=== PATIENT | female | born 1975 | race Caucasian/White ===

== ENCOUNTER 2020-08-19 07:23 | Outpatient (REF) | payer BC, SELFPAY ==
[2020-08-19 11:13] LABS: Hematocrit 41.4 % (37-47); Hemoglobin 13.3 g/dl (12.0-16.0); Mean Corpuscular HGB Conc 32.1 g/dl (31.0-35.0); Mean Corpuscular Volume 96.5 fL (80-98); Mean Platelet Volume 9.6 fL (9.4-12.3); Platelet Count 292 X10*3/uL (160-400); Red Blood Count 4.29 X10*6/uL (4.20-5.50); Red Cell Distribution Width 12.2 % (11.0-16.0); White Blood Count 5.6 X10*3/uL (4.8-10.8)
[2020-08-19 11:25] LABS: Glucose Urine UA NEG (NEG); Leukocyte Esterase Urine NEG (NEG); Nitrite Urine NEG (NEG); PH 5.5 (5.0-8.0); Specific Gravity - Urine >= 1.030 (1.005-1.025); Urine Blood 3+ (NEG); Urine Ketones NEG (NEG); Urine Protein NEG (NEG-TRACE)
[2020-08-19 11:27] LABS: Appearance Urine TURBID; Color Urine YELLOW
[2020-08-19 11:41] LABS: Alanine Aminotransferase 10 U/L (0-31); Albumin Level 4.4 g/dL (3.5-5.0); Alkaline Phosphatase 44 U/L (39-117); Anion Gap 15 (12-20); Aspartate Amino Transferase 17 U/L (5-31); Bilirubin Total 0.5 mg/dL (0.0-1.0); Blood Urea Nitrogen 12 mg/dL (9-16); Calcium 8.8 mg/dL (8.4-10.2); Carbon Dioxide 26 mmol/L (22-29); Chloride 104 mmol/L (96-108); Cholesterol 173 mg/dL; Estimated Glomerular Filt Rate > 60; Glucose Fasting 84 mg/dL (60-99); HDL Cholesterol 62 mg/dL; LDL Cholesterol Calculated 101 mg/dl; Sodium 141 mmol/L (135-145); Total Protein 6.8 g/dL (6.5-8.0); Triglycerides 54 mg/dL
[2020-08-19 11:50] LABS: Amorphous Sediment Urine 3+ /LPF; Bacteria Urine 1+ /LPF; Squamous Epithelial Cell Urine 3+ /LPF; WBC Urine 0-2 /HPF (0-4)
[2020-08-19 12:01] LABS: Thyroid Stimulating Hormone 1.93 uIU/mL (0.32-4.0)
== END 2020-08-19 07:24 | disposition home or self-care (01) ==
LOC: HO.HMGCLDS 07:23
PROVIDERS: PCP Internal Medicine; Visit Provider Internal Medicine
DX: Z00.00 Encounter for general adult medical examination without abnormal findings (principal)
CPT/HCPCS: 36415; 80053; 80061; 81001; 84443; 85027

== ENCOUNTER → 2020-11-22 08:05 | Outpatient (BNVA) | payer BC, SELFPAY | PROVIDERS: PCP Internal Medicine; Visit Provider Nurse Practitioner Family ==

== ENCOUNTER → 2020-12-14 14:41 | Outpatient (BNVA) | payer BC, SELFPAY | PROVIDERS: PCP Internal Medicine; Visit Provider Anesthesiology ==

== ENCOUNTER 2021-11-04 08:44 | Outpatient (REF) | payer BC, SELFPAY ==
[2021-11-04 11:21] LABS: Hematocrit 42.6 % (37.0-47.0); Hemoglobin 13.6 g/dl (12.0-16.0); Mean Corpuscular HGB Conc 31.9 g/dl (31.0-35.0); Mean Corpuscular Hemoglobin 30.7 pg (27.0-33.0); Mean Corpuscular Volume 96.2 fL (80.0-98.0); Mean Platelet Volume 9.3 fL (9.4-12.3); Platelet Count 316 X10*3/uL (160-400); Red Blood Count 4.43 X10*6/uL (4.20-5.50); Red Cell Distribution Width 12.3 % (11.0-16.0); White Blood Count 6.4 X10*3/uL (4.8-10.8)
[2021-11-04 11:25] LABS: Appearance Urine CLOUDY; Color Urine YELLOW; Glucose Urine UA NEG (NEG); Leukocyte Esterase Urine NEG (NEG); Nitrite Urine NEG (NEG); PH 5.5 (5.0-8.0); Specific Gravity - Urine >= 1.030 (1.005-1.025); Urine Blood 1+ (NEG); Urine Ketones NEG (NEG); Urine Protein NEG (NEG-TRACE)
[2021-11-04 11:41] LABS: Amorphous Sediment Urine 3+ /LPF; RBC Urine 0-2 /HPF (0); Squamous Epithelial Cell Urine 1+ /LPF; WBC Urine 0-2 /HPF (0-4)
[2021-11-04 11:50] LABS: Alanine Aminotransferase 14 U/L (0-31); Albumin Level 4.3 g/dL (3.5-5.0); Alkaline Phosphatase 58 U/L (39-117); Anion Gap 11 (12-20); Aspartate Amino Transferase 19 U/L (5-31); Bilirubin Total 0.4 mg/dL (0.0-1.0); Blood Urea Nitrogen 14 mg/dL (9-16); Calcium 9.2 mg/dL (8.4-10.2); Carbon Dioxide 30 mmol/L (22-29); Chloride 106 mmol/L (96-108); Cholesterol 185 mg/dL; Estimated Glomerular Filt Rate > 60; Glucose Fasting 92 mg/dL (60-99); HDL Cholesterol 70 mg/dL; LDL Cholesterol Calculated 106 mg/dl; Potassium 4.5 mmol/L (3.3-5.1); Sodium 142 mmol/L (135-145); Total Protein 6.9 g/dL (6.5-8.0); Triglycerides 49 mg/dL
[2021-11-06 05:31] LABS: Folate 10.6 ng/mL (> or = 4.0); Vitamin B12 215 pg/mL (200-900)
== END 2021-11-04 08:45 | disposition home or self-care (01) ==
LOC: HO.HMGCLDS 08:44
PROVIDERS: PCP Internal Medicine; Visit Provider Internal Medicine
DX: Z00.00 Encounter for general adult medical examination without abnormal findings (principal); G62.9 Polyneuropathy, unspecified
CPT/HCPCS: 36415; 80053; 80061; 81001; 82607; 82746; 84207; 84443; 85027

== ENCOUNTER 2022-09-06 18:16 | Outpatient (REF) | payer BC, SELFPAY ==
[2022-09-06 19:09] LABS: Influenza A PCR NEGATIVE (Negative); Influenza B PCR NEGATIVE (Negative); Resp Syncy Virus RNA Qual PCR NEGATIVE (Negative); SARS COV2 PCR INHOUSE NEGATIVE (Negative)
== END 2022-09-06 18:17 | disposition home or self-care (01) ==
LOC: HO.LNP 18:16
PROVIDERS: Visit Provider Physician Assistant Medical
DX: Z20.822 Contact with and (suspected) exposure to COVID-19 (principal); R05.9 Cough, unspecified
CPT/HCPCS: 0241U

== ENCOUNTER 2023-02-04 08:01 | Outpatient (REF) | payer BC, SELFPAY ==
[2023-02-06 05:58] LABS: Rubella IgG Antibody 9.35 Index
[2023-02-06 23:29] LABS: TS Negative Control Passed; TS Panel A 4; TS Panel B 7; TS Positive Control Passed; TSpotTB Borderline (Negative)
== END 2023-02-04 08:02 | disposition home or self-care (01) ==
LOC: HO.HMGCLDS 08:01
PROVIDERS: PCP Internal Medicine; Visit Provider Internal Medicine
DX: Z11.1 Encounter for screening for respiratory tuberculosis (principal); Z78.9 Other specified health status
CPT/HCPCS: 36415; 86481; 86735; 86762; 86765

== ENCOUNTER 2023-04-08 08:21 | Outpatient (REF) | payer BC, SELFPAY ==
[2023-04-08 11:20] LABS: MANUAL DIFF FLAG NO
[2023-04-08 11:34] LABS: Basophils Absolute Auto 0.1 X10*3/uL (0.0-0.2); Basophils Percent Auto 1.3 % (0-2); Eosinophils Absolute Auto 0.3 X10*3/uL (0.0-0.4); Eosinophils Percent Auto 7.5 % (0-4); Hematocrit 41.2 % (37.0-47.0); Hemoglobin 13.5 g/dl (12.0-16.0); Imm Gran Abs Auto 0.01 X10*3/uL (0.00-0.03); Imm Gran Pct Auto 0.2 % (0.0-0.4); Lymphocytes Absolute Auto 1.8 X10*3/uL (1.2-4.9); Lymphocytes Percent Auto 40.7 % (20-40); Mean Corpuscular HGB Conc 32.8 g/dl (31.0-35.0); Mean Corpuscular Hemoglobin 30.8 pg (27.0-33.0); Mean Corpuscular Volume 94.1 fL (80.0-98.0); Mean Platelet Volume 9.3 fL (9.4-12.3); Monocytes Absolute Auto 0.3 X10*3/uL (0.1-1.2); Monocytes Percent Auto 6.9 % (2-11); Neutrophils Percent Auto 43.4 % (45-73); Platelet Count 296 X10*3/uL (160-400); Red Blood Count 4.38 X10*6/uL (4.20-5.50); Red Cell Distribution Width 12.4 % (11.0-16.0); White Blood Count 4.5 X10*3/uL (4.8-10.8)
[2023-04-08 12:21] LABS: Alanine Aminotransferase 21 U/L (0-31); Albumin Level 4.4 g/dL (3.5-5.0); Alkaline Phosphatase 59 U/L (39-117); Anion Gap 12 (12-20); Aspartate Amino Transferase 28 U/L (5-31); Bilirubin Total 0.5 mg/dL (0.0-1.0); Blood Urea Nitrogen 14 mg/dL (9-16); Calcium 9.5 mg/dL (8.4-10.2); Carbon Dioxide 31 mmol/L (22-29); Chloride 104 mmol/L (96-108); Cholesterol 198 mg/dL (<200); Estimated Glomerular Filt Rate > 60; Glucose Fasting 90 mg/dL (60-99); HDL Cholesterol 70 mg/dL (>40); Iron 85 mcg/dL (30-160); LDL Cholesterol Calculated 117 mg/dL (<100); Percent Iron Saturation 28 % (15-50); Potassium 4.7 mmol/L (3.3-5.1); Sodium 142 mmol/L (135-145); TSH reflex Free T4 1.26 uIU/mL (0.32-4.0); Total Iron Binding Capacity 306 mcg/dL (228-428); Total Protein 7.2 g/dL (6.5-8.0); Triglycerides 56 mg/dL (<150); Unsaturated Iron Binding 221 ug/dL; Vitamin D 25-OH Total 43.2 ng/mL (>30)
[2023-04-08 12:51] LABS: Folate 12.4 ng/mL (> or = 4.0); Vitamin B12 345 pg/mL (200-900)
[2023-04-10 01:03] LABS: Follicle Stimulating Hormone 197.1 mIU/mL
== END 2023-04-08 08:22 | disposition home or self-care (01) ==
LOC: HO.HMGCLDS 08:21
PROVIDERS: PCP Internal Medicine; Visit Provider Internal Medicine
DX: Z00.00 Encounter for general adult medical examination without abnormal findings (principal); L65.9 Nonscarring hair loss, unspecified
CPT/HCPCS: 36415; 80053; 80061; 82306; 82607; 82746; 83001; 83540; 84443; 85025

== ENCOUNTER 2023-07-19 07:58 | Outpatient (AMB) | payer BC, SELFPAY ==
[2023-07-19 08:10] VITALS: BP 92/64; PULSE 69; O2SAT 99; BMI 22.1
--- NOTE | 2023-07-19 08:10 | MHC.PC.OV ---
Vital Signs 07/19/23 08:10 Height 5 ft 7 in Weight 141 lb BMI 22.1 BP 92/64 Blood Pressure Location Lt brachial Position Sitting Pulse 69 Pulse Source Pulse Oximeter Pulse Oximetry (%) 99 Oxygen Delivery Method Room Air Intake Visit Reasons: Annual PE Intake Note: Pt is here today for PE. Pt states that she has [facility] at [facility] and she has appt for pap next week scheduled. Allergies No Known Allergies Allergy (Verified 07/19/23 08:12) Medication List - Last Reconciled 07/19/23 by Marsha Bliss MD citalopram 20 mg PO DAILY magnesium hydroxide 1500 mg 3 x week orally; Tobacco use date assessed: 07/19/23 Dental Screening Dental Screen Date: 07/19/23 Did you have a dental visit in the last 12 months?: Yes Did you have a dental problem in the last 6 months where you did not have access to dental care?: No Was dental information given to patient?: Patient has dentist HPI Annual PE HPI Details Pt presents for PE. [facility] Medical History Neuropathy Microscopic hematuria Sinusitis Annual physical exam DJD (degenerative joint disease), lumbar Chronic constipation Anxiety Surgical History S/P right knee arthroscopy H/O colonoscopy Family History Father No problems noted. Mother No problems noted. Daughter Type 1 diabetes Maternal Grandmother History of kidney cancer Social History Housing: House Alcohol intake: current Alcohol intake frequency: a few times a month Patient Tobacco Use Status: Never used Tobacco e-Cigarette/Vaping Use: Never Used Second Hand Smoke Exposure: No Current occupational status: employed Cognitive needs: No Hearing needs: No Vision needs: No Questionnaire PHQ-9 Over the last 2 weeks, how often have you been bothered by any of the following problems? 1. Little interest or pleasure in doing things: not at all 2. Feeling down, depressed, or hopeless: not at all 3. Trouble falling or staying asleep, or sleeping too much: not at all 4. Feeling tired or having little energy: not at all 5. Poor appetite or overeating: not at all 6. Feeling bad about yourself - or that you are a failure or have let yourself or your family down: not at all 7. Trouble concentrating on things, such as reading the newspaper or watching television: not at all 8. Moving or speaking so slowly that other people could have noticed. Or the opposite - being so fidgety or restless that you have been moving around a lot more than usual: not at all 9. Thoughts that you would be better off or of hurting yourself in some way: not at all Total score: 0 Depression Screening Interpretation: Negative Depression Screening Done: Yes Source: Developed by Drs. Harrison Hart, Narcisa Jerez, Mark Mccain and colleagues, with an educational sherley from [employer]. Thrive Questionnaire Date Thrive assessed: 07/19/23 I am a: Patient What is your living situation today?: I have a steady place to live Within the past 12 months, did the food you bought not last and you didn't have the money to get more?: Never true Within the past 12 months, did you worry whether your food would run out before you got money to buy more?: Never true Do you have trouble paying for medicines?: No Do you have trouble getting transportation to medical appointments?: No Do you have trouble paying your heating and electricity bill?: No Do you have trouble taking care of your child, family member or friend?: No Do you have trouble with day-to-day activities such as bathing, preparing meals, shopping, managing finances, etc.?: No Are you currently unemployed and looking for a job?: No Are you interested in more education?: No Please select the resources that you would like help with: None AUDIT C Alcohol Use Questionnaire (AUDIT-C) 1. How often do you have a drink containing alcohol?: 2-4 times a month 2. How many drinks containing alcohol do you have on a typical day when you are drinking?: 3 or 4 3. How often do you have six or more drinks on one occasion?: Never Total Score: 3 OCHOA-7 AMB Questionnaire OCHOA-7 Date OCHOA - 7 assessed: 07/19/23 Feeling nervous, anxious, or on edge: 0 = Not at all Not being able to stop or control worryin = Not at all Worrying too much about different things: 0 = Not at all Trouble relaxin = Not at all Being so restless that it is hard to sit still: 0 = Not at all Becoming easily annoyed or irritable: 0 = Not at all Feeling afraid as if something awful might happen: 0 = Not at all Total OCHOA-7 score (0-4 normal; 5-9 mild; 10-14 moderate; 15-21 severe): 0 Source: Developed by Drs. Harrison Hart, Narcisa Jerez, Mark Mccain and colleagues, with an educational sherley from [employer]. Review of Systems Const All systems reviewed & are unremarkable except as noted in HPI and below Reports no additional complaints Eyes Reports no additional complaints ENT Reports no additional complaints Card Reports no additional complaints Resp Reports no additional complaints GI Reports no additional complaints Reports no additional complaints Physical exam (Primary Care) Vital Signs: Last Vital Signs Pulse 69 07/19/23 08:10 BP 92/64 07/19/23 08:10 Pulse Ox 99 07/19/23 08:10 Oxygen Delivery Method Room Air 07/19/23 08:10 BMI result Body Mass Index 22.1 Tobacco/Smoking Status: Tobacco use Status Tobacco use date assessed 07/19/23 07/19/23 08:16 Patient Tobacco Use Status Never used Tobacco 07/19/23 08:16 e-Cigarette/Vaping Use Never Used 07/19/23 08:10 PHQ-9: PHQ-9 Score PHQ-9: Total score 0 07/19/23 08:16 Depression Screening Interpretation: Negative Thrive Assessment: Date of Thrive Assessment Date Thrive assessed 07/19/23 07/19/23 08:16 Const General: no acute distress HENMT Head: Yes normal to inspection Ears: hearing grossly normal bilaterally General nose exam: Normal external nose present Face and sinus: Yes normal facial exam Mouth: Normal oral and palatal mucosa present Throat: Yes posterior oropharynx normal Eyes General: appearance normal, both eyes and all related structures Neck Neck: Yes no lymphadenopathy and Yes supple Resp Effort & Inspection: normal respiratory effort Auscultation: clear to auscultation bilaterally Cardio Rhythm: regular rhythm Heart sounds: S1 normal heart sound present and S2 normal heart sound present GI Inspection: Yes normal to inspection Palpation (GI): Soft to palpation Percussion: Yes normal to percussion Auscultation: normal bowel sounds Assessment and Plan Assessment & Plan (1) Normal 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 Panel Fast 365 Days Z00.00 - Encounter for general adult medical examination without abnormal findings Lipid Panel 365 Days Z00.00 - Encounter for general adult medical examination without abnormal findings Complete Blood Count Auto Diff 365 Days Z00.00 - Encounter for general adult medical examination without abnormal findings Medications: Refilled citalopram 20 mg PO DAILY 90 tabs 3RF Coding Level of Care Code Est Pt Prev Care 40-64y(17401) Diagnoses Normal pelvic exam Z01.419 Annual physical exam Z00.00
== END 2023-07-19 08:58 | disposition home or self-care (01) ==
PROVIDERS: Visit Provider Internal Medicine
DX: Z01.419 Encounter for gynecological examination (general) (routine) without abnormal findings (principal); Z00.00 Encounter for general adult medical examination without abnormal findings
CPT/HCPCS: 99396

== ENCOUNTER 2024-05-14 08:06 | Outpatient (AMB) | payer BC, SELFPAY ==
--- NOTE | 2024-05-14 08:31 | AM.OFFWIN_ITS ---
Intake Vital Signs 05/14/24 08:33 Height 5 ft 7 in Weight 147 lb BMI 23.0 BP 90/62 Blood Pressure Location Lt brachial Position Sitting Pulse 64 Pulse Source Pulse Oximeter Pulse Oximetry (%) 98 Oxygen Delivery Method Room Air Intake Visit Reasons: EP Rt eye pain, swelling Intake Note: Patient here for right eye swelling and pain that has been present since Saturday. Patient Tobacco Use Status: Never used Tobacco Allergies No Known Allergies Allergy (Verified 05/14/24 08:33) Do you need a note to return to daycare/school/sports/work: No HPI HPI Comments History of Present Illness Details Patient is a 49-year-old female complaining of 4 days of right upper eyelid swelling. She states she has had blepharitis in the past and she feels like it is the same problem again and she has been using the tea bags in the eyelid scrubs with no improvement in her symptoms. She states she does not have much drainage but the eyelid is very swollen and painful. She denies any changes in her vision. She states she does see an recycling operations manager because her eyes are also have been very dry, she was given refresh drops which she has been using without much improvement either. [facility] Medical History Neuropathy Microscopic hematuria Sinusitis Annual physical exam DJD (degenerative joint disease), lumbar Chronic constipation Anxiety Surgical History S/P right knee arthroscopy H/O colonoscopy Family History Father No problems noted. Mother No problems noted. Daughter Type 1 diabetes Maternal Grandmother History of kidney cancer Social History Housing: House Alcohol intake: current Alcohol intake frequency: a few times a month Patient Tobacco Use Status: Never used Tobacco e-Cigarette/Vaping Use: Never Used Second Hand Smoke Exposure: No Current occupational status: employed Cognitive needs: No Hearing needs: No Vision needs: No Review of Systems Const All systems reviewed & are unremarkable except as noted in HPI and below Physical Exam Vital Signs: Last Vital Signs Pulse 64 05/14/24 08:33 BP 90/62 05/14/24 08:33 Pulse Ox 98 05/14/24 08:33 Oxygen Delivery Method Room Air 05/14/24 08:33 BMI result Body Mass Index 23.0 Const General: cooperative, healthy appearing, comfortable, no acute distress and well developed Orientation/consciousness: patient oriented x3 Limitations: no limitations HEENT Head: Yes normal to inspection Eyes Alignment and Position: alignment normal and position normal Periorbital: periorbital findings normal Eyelids: Yes eyelid abnormality (Right upper inner eyelid swollen and erythematous) Conjunctivae: conjunctivae normal Sclerae: sclerae normal Pupils: Equal, round and reactive pupils present EOM: EOMs intact bilaterally Neck Neck: Yes normal visual inspection and Yes supple Neuro General: patient oriented x3 Cranial nerves: Yes Equal, round and reactive pupils present Assessment & Plan Assessment & Plan (1) Blepharitis: Code(s): H01.009 - Unspecified blepharitis unspecified eye, unspecified eyelid Qualifiers: Blepharitis type: unspecified type Laterality: right Eyelid: upper Qualified Code(s): H01.001 - Unspecified blepharitis right upper eyelid Plan: Sent erythromycin ointment to her pharmacy as this has helped her in the past, also recommended she can today new with the eyelid scrubs and the tea bag and warm compresses. If no improvement in her symptoms, she should follow up with her recycling operations manager. Plan See above Medications: New erythromycin 0.5 inches ophthalmic (eye) QID 3.5 grams 0RF Coding Level of Care Code Est Pt Level 3 (43786) Diagnoses Blepharitis of right upper eyelid, unspecified type H01.001 Blepharitis type: unspecified type Laterality: right Eyelid: upper
[2024-05-14 08:33] VITALS: BP 90/62; PULSE 64; O2SAT 98; BMI 23.0
== END 2024-05-14 09:01 | disposition home or self-care (01) ==
PROVIDERS: PCP Internal Medicine; Visit Provider Physician Assistant
DX: H01.001 Unspecified blepharitis right upper eyelid (principal)

== ENCOUNTER → 2024-05-14 08:06 | Outpatient (BNVA) | payer BC, SELFPAY | PROVIDERS: PCP Internal Medicine ==

== ENCOUNTER 2024-09-01 09:42 | Outpatient (AMB) | payer BC, SELFPAY ==
--- NOTE | 2024-09-01 09:46 | A.OFFPC_ITS ---
Vital Signs 09/01/24 09:47 Height 5 ft 7 in Weight 137 lb BMI 21.5 BP 106/70 Blood Pressure Location Lt brachial Position Sitting Pulse 68 Pulse Source Pulse Oximeter Pulse Oximetry (%) 100 Oxygen Delivery Method Room Air Intake Visit Reasons: PE Intake Note: Pt is here today for PE. Allergies No Known Allergies Allergy (Verified 09/01/24 09:51) Medication List - Last Reconciled 09/01/24 by Marsha Bliss MD citalopram 20 mg PO DAILY magnesium hydroxide 1500 mg 3 x week orally; polymyxin B sulf-trimethoprim 10,000 unit- 1 mg/mL 1 drp ophthalmic-Right QID 5 days Tobacco use date assessed: 09/01/24 Dental Screening Dental Screen Date: 09/01/24 Did you have a dental visit in the last 12 months?: Yes Did you have a dental problem in the last 6 months where you did not have access to dental care?: No Was dental information given to patient?: Patient has dentist HPI PE HPI Details Pt presents for PE. Pt c/o watery diarrhea for 1 week after a trip to [facility]. Pt denies fever, chills, abdominal pain hematochezia melena. [facility] Medical History (Updated 09/01/24 @ 10:18 by Marsha Bliss MD) Neuropathy Microscopic hematuria Sinusitis Annual physical exam DJD (degenerative joint disease), lumbar Chronic constipation Anxiety Surgical History S/P right knee arthroscopy H/O colonoscopy Family History Father No problems noted. Mother No problems noted. Daughter Type 1 diabetes Maternal Grandmother History of kidney cancer Social History Housing: House Alcohol intake: current Alcohol intake frequency: a few times a month Patient Tobacco Use Status: Never used Tobacco e-Cigarette/Vaping Use: Never Used Second Hand Smoke Exposure: No service: No Current occupational status: employed Cognitive needs: No Hearing needs: No Vision needs: No Questionnaire PHQ-9 Over the last 2 weeks, how often have you been bothered by any of the following problems? 1. Little interest or pleasure in doing things: not at all 2. Feeling down, depressed, or hopeless: not at all 3. Trouble falling or staying asleep, or sleeping too much: several days 4. Feeling tired or having little energy: not at all 5. Poor appetite or overeating: several days 6. Feeling bad about yourself - or that you are a failure or have let yourself or your family down: not at all 7. Trouble concentrating on things, such as reading the newspaper or watching television: not at all 8. Moving or speaking so slowly that other people could have noticed. Or the opposite - being so fidgety or restless that you have been moving around a lot more than usual: not at all 9. Thoughts that you would be better off or of hurting yourself in some way: not at all Total score: 2 Depression Screening Interpretation: Negative Depression Screening Done: Yes 30296 - PHQ-9 Billing: Yes Source: Developed by Drs. Harrison Hart, Narcisa Jerez, Mark Mccain and colleagues, with an educational sherley from [employer]. Thrive Questionnaire Date Thrive assessed: 09/01/24 I am a: Patient What is your living situation today?: I have a steady place to live Within the past 12 months, did the food you bought not last and you didn't have the money to get more?: Never true Within the past 12 months, did you worry whether your food would run out before you got money to buy more?: Never true Do you have trouble paying for medicines?: No Do you have trouble getting transportation to medical appointments?: No Do you have trouble paying your heating and electricity bill?: No Do you have trouble taking care of your child, family member or friend?: No Do you have trouble with day-to-day activities such as bathing, preparing meals, shopping, managing finances, etc.?: No Are you currently unemployed and looking for a job?: No Are you interested in more education?: No Please select the resources that you would like help with: None Currently or been in a relationship where the following occur: No concerns reported THRIVE Score: 0 AUDIT C Alcohol Use Questionnaire (AUDIT-C) 1. How often do you have a drink containing alcohol?: 2-3 times a week 2. How many drinks containing alcohol do you have on a typical day when you are drinking?: 1 or 2 3. How often do you have six or more drinks on one occasion?: Never Total Score: 3 OCHOA-7 AMB Questionnaire OCHOA-7 Date OCHOA - 7 assessed: 09/01/24 Feeling nervous, anxious, or on edge: 0 = Not at all Not being able to stop or control worryin = Several days Worrying too much about different things: 1 = Several days Trouble relaxin = Several days Being so restless that it is hard to sit still: 0 = Not at all Becoming easily annoyed or irritable: 0 = Not at all Feeling afraid as if something awful might happen: 0 = Not at all Total OCHOA-7 score (0-4 normal; 5-9 mild; 10-14 moderate; 15-21 severe): 3 Source: Developed by Drs. Harrison Hrat, Narcisa Jerez, Mark Mccain and colleagues, with an educational sherley from [employer]. OCHAO-7 Assessment Billing OCHOA-7 Assessment Tool: OCHOA-7 Assessment 12586 Review of Systems Const All systems reviewed & are unremarkable except as noted in HPI and below Eyes Reports no additional complaints ENT Reports no additional complaints Card Reports no additional complaints Resp Reports no additional complaints GI Reports no additional complaints Reports no additional complaints Musc Reports no additional complaints Physical exam (Primary Care) Vital Signs: Last Vital Signs Pulse 68 09/01/24 09:47 BP 106/70 09/01/24 09:47 Pulse Ox 100 09/01/24 09:47 Oxygen Delivery Method Room Air 09/01/24 09:47 BMI result Body Mass Index 21.5 Tobacco/Smoking Status: Tobacco use Status Tobacco use date assessed 09/01/24 09/01/24 09:55 Patient Tobacco Use Status Never used Tobacco 09/01/24 09:49 e-Cigarette/Vaping Use Never Used 09/01/24 09:49 PHQ-9: PHQ-9 Score PHQ-9: Total score 2 09/01/24 09:55 Depression Screening Interpretation: Negative Thrive Assessment: Date of Thrive Assessment Date Thrive assessed 09/01/24 09/01/24 09:55 Currently or been in a relationship where the following occur: No concerns reported Const General: no acute distress HENMT Head: Yes normal to inspection Ears: hearing grossly normal bilaterally Mouth: Normal oral and palatal mucosa present Eyes General: appearance normal, both eyes and all related structures Resp Effort & Inspection: normal respiratory effort Auscultation: clear to auscultation bilaterally Cardio Rhythm: regular rhythm Heart sounds: S1 normal heart sound present and S2 normal heart sound present GI Inspection: Yes normal to inspection Palpation (GI): Soft to palpation Percussion: Yes normal to percussion Auscultation: normal bowel sounds Coding Level of Care Code Est Pt Prev Care 40-64y(28404) Diagnoses Diarrhea R19.7 Normal pelvic exam Z01.419 Anxiety F41.9 Annual physical exam Z00.00 Additional Codes OCHOA-7 Assessment Billing - OCHOA-7 Assessment Tool: OCHOA-7 Assessment 78577 ([id number]) PHQ-9 - 66049 - PHQ-9 Billing: Yes ([id number]) Assessment & Plan Assessment & Plan (1) Diarrhea: Code(s): R19.7 - Diarrhea, unspecified Category: Medical Plan: Obtain stool studies and supportive care discussed with the patient. 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 She will return for fasting blood work. Patient is up-to-date with the mammogram at [facility] Orders: Orders Ova and Parasite Today R19.7 - Diarrhea, unspecified Complete Blood Count Auto Diff Today F41.9 - Anxiety disorder, unspecified, Z00.00 - Encounter for general adult medical examination without abnormal findings Lipid Panel Today F41.9 - Anxiety disorder, unspecified, Z00.00 - Encounter for general adult medical examination without abnormal findings Comprehensive [place]. Panel Fast Today F41.9 - Anxiety disorder, unspecified, Z00.00 - Encounter for general adult medical examination without abnormal findings Vitamin D 25-OH Total Today F41.9 - Anxiety disorder, unspecified, Z00.00 - Encounter for general adult medical examination without abnormal findings Leukocytes Stool Qualitative Today R19.7 - Diarrhea, unspecified GI Panel Today R19.7 - Diarrhea, unspecified CDiff Gene PCR Today R19.7 - Diarrhea, unspecified TSH reflex Free T4 Today F41.9 - Anxiety disorder, unspecified, Z00.00 - Encounter for general adult medical examination without abnormal findings Medications: Refilled citalopram 20 mg PO DAILY 90 tabs 3RF
[2024-09-01 09:47] VITALS: BP 106/70; PULSE 68; O2SAT 100; BMI 21.5
--- OUTSIDE RECORDS SUMMARY | 2024-09-01 10:37 | XMS_ITS | Data Portability ---
Author Organization EST[facility] Leonard [facility] [address] Address [address] [place] [address] Assessment Encounter Date Assessment Date Assessment LastModified by Organization Details LastModified Time 09/05/2022 09/05/2022 URI symptoms x 2 days. Viral illness is likely. Recommend Sudafed and Chloraseptic vs Cepacol lozenges. Letter for work declined. Not available 09/05/2022 08:29:20 Plan of Treatment Reminders Order Date Submit Date Provider Last Modified By Organization Details Last Modified Time Details Appointments None recorded . Lab rapid strep group A, throat 023 09/05/19 23 [email or web address] ne1 [facility], [address] [place] [address], [place], [address], 08:30:56 Referral None recorded . Procedures None recorded . Surgeries None recorded . Imaging None recorded . Medication Orders None recorded . Patient TargetsNo targets recorded. Patient Instructions Encounter Date Encounter Id Patient Instructions Last Modified By Organization Details Last Modified Time 09/05/2022 [id number] sore throat: car e instructions Not available 09/05/2022 08:30:56 Mix 1 teaspoonfu l of salt in a glass of warm water. Gargle and spit out the salt water mixture one mouthful at a time until the glass is empty. Repeat 4 times daily. Recommend Sudafed for your post nasal drip and sinus congestion. Add Chloraseptic or Cepacol lozenges Not available 09/05/2022 08:30:55 Reason for Referral None Reported. Results Created Date Observation Date Name Description Value Unit Range Abnormal Flag Note LastModifiedBy Organization Detail LastModifiedTime 09/05/1909/05/2022 rapid strep group A, throa t Unknown Analyte Normal = Negati ve Not Available [address] [address] [place], [address], 09/05/2022 08:11:02 09/05/19 23 09/05/2022 rapid strep group A, throa t Unknown Analyte negati ve Not Available [address] [id number] [place], [address], 09/05/2022 08:11:02 Result Notes None recorded. Problems Name Problem SNOMED Code Status Onset Date Resolution Date Notes Provider Name and Address Organization Details Recorded Time Anxiety [id number] Active 023 JERMAINE hughes, PA - [facility] 09/05/2022 08:11:50 Problem Notes None recorded. Procedures Surgical History Date Name Laterality Status Provider Name and Address Organization Details Recorded Time procedure on knee completed JERMAINE CORTÉS PA - [facility] 09/05/2022 08:12:27 surgical procedure on eye proper using laser completed JERMAINE CORTÉS PA - [facility] 09/05/2022 08:13:04 Imaging Results None recorded. Procedure Notes None recorded. Medical Equipment None Reported. Allergies No known drug allergies Medications Name Sig Start Date Stop Date Status Note LastModified by Organization Details LastModified Time azithromycin 250 mg tablet TAKE 2 TABLETS BY MOUTH TODAY, THEN TAKE 1 TABLET DAILY FOR 4 DAYS 09/05 completed Not Available Not Available Not Available nortriptylin e 25 mg capsule TAKE 1 CAPSULE BY MOUTH AT BEDTIME 09/05 completed Not Available Not Available Not Available citalopram 20 mg tablet TAKE 1 TABLET BY MOUTH DAILY active Not Available Not Available No t Available Vitals Date Recorded Body height Provider Name an d Address Organization Details Last Updated DateTime 09/05/2022 172.72 cm JERMAINE CORTÉS PA - [facility] 0 09/05/2022 08:11:18 Date Recorded Body mass index (BMI) Body weight Provider Name and Address Organization Details Last Updated DateTime 09/05/2022 20.5 kg/m2 77690.97 g JERMAINE CORTÉS PA - [facility] 09/05/2022 08:11:21 Date Recorded Pain severity - 0-10 verbal numeric rating [Score] - Reported Provider Name and Address Organization Details Last Updated DateTime 09/05/2022 9 JERMAINE CORTÉS PA - [facility] 0 09/05/2022 08:11:26 Date Recorded Oxygen saturation Oxygen saturation in Arterial blood by Pulse oximetry Provider Name and Address Organization Details Last Updated DateTime 09/05/2022 99 % 99 % JERMAINE CORTÉS PA - [facility] 09/05/2022 08:13:56 Date Recorded Heart rate Provider Name an d Address Organization Details Last Updated DateTime 09/05/2022 78 /min JERMAINE CORTÉS PA - [facility] 0 09/05/2022 08:13:58 Date Recorded Respiratory rate Provider Name a nd Address Organization Details Last Updated DateTime 09/05/2022 16 /min JERMAINE CORTÉS PA - [facility] 0 09/05/2022 08:14:23 Date Recorded Body temperature Provider Name a nd Address Organization Details Last Updated DateTime 09/05/2022 98.6 [degF] JERMAINE CORTÉS PA - [facility] 09/05/2022 08:14:25 Date Recorded Systolic blood pressure Diastolic blood pressure Provider Name and Address Organization Details Last Updated DateTime 09/05/2022 110 mm[Hg] 75 mm[Hg] JERMAINE CORTÉS PA - [facility] 09/05/2022 08:13:50 Social History Question Answer Notes LastModified by Organizat ion Details LastModified Time Tobacco Smoking Status Former Smoker JERMAINE CORTÉS ellen, PA - [facility] 09/05/2022 08:12:15 What Is Your Level Of Alcohol Consumption? Occasional [email or web address] Information not available 09/05/2022 When Did You Quit Smoking? 16+yearssincel astcigarette [email or web address] Information not available 09/05/2022 Do You Use Any Illicit Or Recreational Drugs? No [email or web address] Information not available 09/05/2022 Have You Recently Traveled Abroad? No [email or web address] Information not available 09/05/2022 Do You Or Have You Ever Used Any Other Forms Of Tobacco Or Nicotine? No [email or web address] Information not available 09/05/2022 Sex: Unknown Functional Status None recorded. Mental Status None recorded. Family History Relationship Description Onset Age of this Age Resolved Age Notes LastModified by Organization Details LastModified Time Father No current problems or disability [email or web address] Not available 09/05 08:11:53 Mother No current problems or disability [email or web address] Not available 09/05 08:11:53 Medical History No medical history recorded. Gynecological HistoryNo gynecological history recorded. Obstetrics History GPAL:G 0 P 0 0 0 0 Past Encounters Encounter ID Performer Location Encounter Start Date Encounter Closed Date Diagnosis/Indication Diagnosis SNOMED-CT Code Diagnosis ICD10 Code Diagnosis Note [id number] [address] [address] [place] [address] 04/05/2018 09:17:35 04/05/2018 09:48:17 [id number] [address] [address] [place] [address] 09/06/2017 12:32:12 09/06/2017 13:09:59 [id number] [address] [place] [address] 12/15/2019 11:58:48 12/15/2019 12:40:37 [id number] Jennifer Pierre DO [address] [place] [address] 09/05/2022 08:02:45 09/05/2022 08:33:31 Acute pharyngitis 465753476 J02.9 Acute uppe r respiratory infection 54641195 J06.9 Health Concerns Section Related Observation LastModified by Organization Detai ls LastModified Time None Recorded Concern Status LastModified by Organization Details LastModified Time None Recorded Advance Directives Directive None Recorded Payers Encounter Date Sequence Insurance Name Policy Number Policy Spencer Covered Member ID Spencer Member ID Guarantor Name 12/15/2019 1 [place] [facility] [id number] Hnuter Bradleyr [id number] Ada Bradleyr 09/05/2022 1 [place] [facility] [id number] Hunter Bradleyr [id number] Ada Clements Notes Date Note Type Note Provider Name and Address Organization Details Recorded Time 09/05/2022 text/html Sore throatRepor maude bypatient.Location: hroat Severity:moderate Quality:hurts to swallow Onset/Timin days Associated Symptoms:no sputum production; no shortness of breath; no wheezing; no vomiting; no nausea; No hoarseness;coughing; sinus pain/ congestion Context:no sick contacts URI symptoms x 2 days: cough, post nasal drip and sore throat. Cough improved today. Self treatment: Theraflu, Robitussin, IBU. Intermittent use of warm salt gargles. Negative rapid Covid test at home yesterday. Jennifer Pierre, DO [facility] [place], [address], PA - [facility] 09/05/2022 08:35:11 OBGyn Episode No OBEpisode recorded.
--- OUTSIDE RECORDS SUMMARY | 2024-09-01 10:38 | XMS_ITS | Continuity of Care Document ---
Author Organization [facility] Address [address] [place] [address] Phone Care Team Providers Care Spider Assembler Name Role Phone Andres Ocasio MD Unavailable [...] Copied on Encounter [facility], [address] [place] [address] [address], [place], [place], [id number], tel:[phone] VR - [facility] No Information 1 Amarjit Campos. [address], [address], [place], [place], [id number] . tel:[phone] Referring Provider: Marsha Bliss MD S, [address] [facility], [place], [address]. tel:[phone] Offic Cons New/estab Mod-hi 60 [facility], [address] [place] [address], [place], [place], [id number], tel:[phone] VR - [place] Body mass index (BMI) 20.0-20.9, adultVenous insufficiency (chronic) (peripheral) 1 Johnny Brock. [address], [address], [place], [address], [place]. tel:[phone] Referring Provider: Marsha Bliss MD S, [address] [place] [address], [place], [address]. tel:[phone] [facility], [address] [place] [address], [id number], tel:[phone] - [facility] Varicose veins of bilateral lower extremities with pain 1 Johnny Brock. [address], [address], [place], [address], [place]. tel:[phone] Referring Provider: Marsha Bliss MD S, [address] [place] [address], [place], [address]. tel:[phone] Family History Family Member Type Diagnosis Age At Onset Mother Problem (finding) Varicose Veins Mother Problem (finding) Edema Sister Problem (finding) Diabetes mellitus Payers Payer name Insurance type Covered republican ID Divina villeladominik(s) [place] [id number] Social History Type Description Quantity Date Captured [...]
--- OUTSIDE RECORDS SUMMARY | 2024-09-01 10:38 | XMS_ITS | Clinical Summary ---
Author Organization [facility] Address [address] [id number] Care Team Providers Care Material Chaser Name Role Phone Marsha Bliss Primary Care Provider [phone] Allergies No known active allergies Medications celecoxib (CeleBREX) 200 mg capsule Take 200 mg by mouth once a day. 08/12/2021 Active citalopram (CeleXA) 20 mg tablet Take 20 mg by mouth once a day. 05/25/2021 Active ibuprofen 200 mg capsule Take 600 mg by mouth as needed. Active Active Problems No known active problems Family History Relation Name Status Comments Father Alive Mother Alive Social History Tobacco Use Types Packs/Day Years Used Date Smoking Tobacco: Former Cigarettes Q uit: 11/24/1991 Smokeless Tobacco: Never Alcohol Use Standard Drinks/Week Comments Yes 0 (1 standard drink = 0.6 oz pur e alcohol) social Comments Unknown Sex and Gender Information Value Date Recorded Sex Assigned at Not on file Legal Sex Female 12:03 AM EDT Gender Identity Not on file Sexual Orientation Not on file Last Filed Vital Signs Vital Sign Reading Time Taken Comments Blood Pressure 107/71 11/23/2021 9:47 AM EDT Pulse 70 11/23/2021 9:47 AM EDT Temperature 36.6 ??C (97.8 ??F) 11/23/2021 9:47 AM ED T Respiratory Rate 16 11/23/2021 9:47 AM EDT Oxygen Saturation - - Inhaled Oxygen Concentration - - Weight 60.8 kg (134 lb) 11/23/2021 9:47 AM EDT Height 171.5 cm (5' 7.5 ) 11/23/2021 9:47 AM EDT Body Mass Index 20.68 11/23/2021 9:47 AM EDT Plan of Treatment Health Maintenance Due Date Last Done Comments Cervical Cancer Screening 1973 Cologuard 1973 Colon Cancer Screening 1973 Colonoscopy 1973 FOBT / Fit Test 1973 HIV Screening 1973 HPV and Pap Smear 1973 Pap Smear 1973 Sigmoidoscopy 1973 Hepatitis B Vaccines (1 of 3 - 19+ 3-dose series) 1992 DTaP,Tdap,and Td Vaccines (1 - Tdap) 1995 Mammogram 2013 Zoster Vaccines (1 of 2) 2023 COVID-19 Vaccine (1 - 2023-2 5 season) 2024 Influenza Vaccine (#1) 2024 Alcohol/Substance Use Screening 08/12/2024 Depression Screening and Follow-Up 08/12/2024 Social Drivers of Health Dee Dee ual Screening 08/12/2024 RSV Vaccine (60+ years old a nd patients) (1 - 1-dose 75+ series) 2048 Hepatitis C Screening Completed 11/23/2021 Pneumococcal Vaccine: Pediat nikunj (0-5 Years) and At-Risk Patients (6-64 Years) Aged Out No longer eligible b ased on patient's age to complete this topic Procedures * Due to [facility] law, this organization might not be sharing negative HIV tests. Procedure Name Priority Date/Time Associated Diagnosis Comments HEPATITIS PANEL, ACUTE Routine 11/23/2021 10:53 AM EDT Neuropathy from Last 3 Months or Most Recently Relevant to Health Maintenance Results * Due to [facility] law, this organization might not be sharing negative HIV tests. * Hepatitis Panel, Acute (11/23/2021 10:53 AM EDT) Hepatitis A IgM NON-REACT THUY NON-REACT THUY 11/24/2021 5:03 PM EDT [facility] Hepatitis B Surface Antigen NON-REACT THUY NON-REACT THUY 11/24/2021 5:03 PM EDT [facility] Hepatitis B Core Antibody NON-REACT THUY NON-REACT THUY 11/24/2021 5:03 PM EDT [facility] Hepatitis C Antibody NON-REACT THUY NON-REACT THUY 11/24/2021 5:03 PM EDT [facility] Signal To Cut-Off 0.01 <1.00 11/24/2021 5:03 PM EDT [facility] Comment: HCV antibody was non-reactive. There is no laboratory evidence of HCV infection. In most cases, no further action is required. However, if recent HCV exposure is suspected, a test for HCV RNA (test code 16114) is suggested. For additional information please refer to http://[employer]/faq/IBB39o9 (This link is being provided for informational/ educational purposes only.) For additional information, please refer to http://[employer]/faq/WBT773 (This link is being provided for informational/ educational purposes only.) Blood Structure of peripheral vein / Unknown Venipuncture / Unknown 11/23/2021 10:53 AM EDT 11/23/2021 11:09 AM EDT Narrative [facility] - 11/24/2021 5:03 PM EDT [facility] Received Date: us Rosa Elena Mauricio MD LAB BLOOD ORDERABLES Final Re sult [facility] [address], [place] [address], [facility] [address], [place] [address], from Last 3 Months or Most Recently Relevant to Health Maintenance Insurance [facility] HMO/POS Care Teams Material Chaser Relationship Specialty Start Date End Date Marsha Bliss [address] [place] [address] PCP - General 11/22/21
--- OUTSIDE RECORDS SUMMARY | 2024-09-01 10:38 | XMS_ITS | Referral Summary ---
Author Organization [facility] Address [address] [place] [address] Care Team Providers Care Training Coordinator Name Role Phone Marsha Bliss Primary Care Provider [phone] Allergies No known active allergies Medications celecoxib (CeleBREX) 200 mg capsule Take 200 mg by mouth once a day. 08/12/2021 Active citalopram (CeleXA) 20 mg tablet Take 20 mg by mouth once a day. 05/25/2021 Active ibuprofen 200 mg capsule Take 600 mg by mouth as needed. Active Active Problems No known active problems Social History Tobacco Use Types Packs/Day Years [...] 11/23/2021 9:47 AM EDT Plan of Treatment Not on file Procedures * Due to [facility] law, this organization might not be sharing negative HIV tests. Procedure Name Priority Date/Time Associated Diagnosis Comments HEPATITIS PANEL, ACUTE Routine 11/23/2021 10:53 AM EDT Neuropathy from Last 3 Months or Most Recently Relevant to Health Maintenance Results * Due to [facility] law, this organization might not be sharing negative HIV tests. * Hepatitis Panel, Acute (11/23/2021 10:53 AM EDT) Hepatitis A IgM NON-REACT THUY NON-REACT THUY 11/24/2021 5:03 PM EDT [facility] Hepatitis B Surface Antigen NON-REACT THUY NON-REACT THUY 11/24/2021 5:03 PM EDT [facility] Hepatitis B Core Antibody NON-REACT THUY NON-REACT THUY 11/24/2021 5:03 PM EDT [facility] Hepatitis C Antibody NON-REACT THUY NON-REACT THUY 11/24/2021 5:03 PM EDT [facility] Signal To Cut-Off 0.01 <1.00 11/24/2021 5:03 PM EDT [facility] Comment: HCV antibody was non-reactive. There is no laboratory evidence of HCV infection. In most cases, no further action is required. However, if recent HCV exposure is suspected, a test for HCV RNA (test code 68014) is suggested. For additional information please refer to http://[employer]/faq/WKH26n7 (This link is being provided for informational/ educational purposes only.) For additional information, please refer to http://[employer]/faq/MTH359 (This link is being provided for informational/ educational purposes only.) Blood Structure of peripheral vein / Unknown Venipuncture / Unknown 11/23/2021 10:53 AM EDT 11/23/2021 11:09 AM EDT Narrative [facility] [place] - 11/24/2021 5:03 PM EDT [facility] Received Date: us Rosa Elena Mauricio MD LAB BLOOD ORDERABLES Final Re sult [facility] [address], [place] [address], [place] [phone] [facility] [address], [address] [facility] [address], [place] [phone] from Last 3 Months or Most Recently Relevant to Health Maintenance Insurance [facility] HMO/POS Care Teams Training Coordinator Relationship Specialty Start Date End Date Marsha Bliss [address] [place] [address] PCP - General 11/22/21
== END 2024-09-01 11:21 | disposition home or self-care (01) ==
PROVIDERS: PCP Internal Medicine; Visit Provider Internal Medicine
DX: R19.7 Diarrhea, unspecified (principal); Z01.419 Encounter for gynecological examination (general) (routine) without abnormal findings; F41.9 Anxiety disorder, unspecified; Z00.00 Encounter for general adult medical examination without abnormal findings

== ENCOUNTER → 2024-09-01 09:42 | Outpatient (BNVA) | payer BC, SELFPAY | PROVIDERS: PCP Internal Medicine; Visit Provider Internal Medicine | DX: Z00.01 Encounter for general adult medical examination with abnormal findings (principal); R19.7 Diarrhea, unspecified; F41.9 Anxiety disorder, unspecified; Z79.899 Other long term (current) drug therapy | CPT/HCPCS: 96127 ==

== ENCOUNTER 2024-09-17 15:21 | Emergency (ER) | payer BC, SELFPAY ==
--- NOTE | ~2024-09-17 | US_ITS ---
EXAMINATION: US ABDOMEN LIMITED CLINICAL INFORMATION: Right upper quadrant pain.. COMPARISON: None available. TECHNIQUE: Real-time imaging of the right upper quadrant abdominal viscera. FINDINGS: GALLBLADDER: The gallbladder is physiologically distended without evidence of stones, sludge, polyps or pericholecystic fluid. Gallbladder wall thickness is 0.26 cm. No pericholecystic fluid collection. There is no tenderness in right upper quadrant by ultrasound probe. COMMON BILE DUCT: Normal in caliber measuring 0.59 cm in diameter. US/US abdomen limited IMPRESSION: Unremarkable gallbladder ultrasound. Electronically signed by: Panchito Pruitt MD 09/17/2024 04:32 PM EST
--- NOTE | ~2024-09-17 | CT_ITS ---
CLINICAL HISTORY: RLQ pain, RUQ pain CT abdomen and pelvis with contrast Comparison: US/SR - US ABDOMEN LIMITED - 09/17/24 16:04 EST Findings: The lung bases are clear. Unremarkable gallbladder and solid organs. No urolithiasis. No bowel obstruction, pneumoperitoneum, or pneumatosis. Moderate distention of the urinary bladder. Appendix not definitively seen. No secondary findings to suggest appendicitis. The bones are intact. IMPRESSION: Severe fecal retention within the colon. This document has been electronically signed by: Nanda Barber MD on 09/17/2024 18:09:17
[2024-09-17 15:50] VITALS: BP 122/71; PULSE 68; RESP 16; TEMP 36.4; O2SAT 100; BMI 21.3
--- NOTE | 2024-09-17 15:54 | ED.ABDPAIN ---
HPI - Abdominal Pain General Chief Complaint: Abdominal Pain Stated Complaint: right side abd pain Time Seen by Provider: 09/17/24 16:02 Source: patient and RN notes reviewed Mode of arrival: ambulatory Limitations: no limitations History of Present Illness ED Provider: Marisel Mccormick PA-C HPI narrative: This is a 49-year-old female who presents emergency department for evaluation of acute onset abdominal pain which started 30 minutes ago. Patient states that while she was eating a kale salad, she suddenly developed epigastric pain, and right-sided abdominal pain. She states that the pain lasted for about 30 minutes. She states that the pain radiated into her right shoulder. She endorsed shortness of breath during that time however this has since resolved due to the pain, which has since resolved. She states that her abdominal pain is now a 2/3 out of 10. She denies any fevers, chills, vomiting, diarrhea or constipation. Denies any chest pain. No urinary symptoms. Patient reports that she has a history of chronic constipation. She states seveal weeks ago she has having trouble with her bowels > going more regularly and she was told to get a stool sample to test for parasites, however states that she then had constipation and was unable to provide a sample. She states that she had a bowel movement earlier today however has not had normal bowel movements, before this morning, she has not had a bowel movement in over 4 days. MD elicited complaint: abdominal pain Location: RUQ and RLQ Severity: moderate Relieving factors: nothing Associated symptoms: nausea Related Data Home Medications ?Medication ?Instructions ?Recorded ?Confirmed magnesium hydroxide 1,200 mg See Rx Instructions PO .COMPLEX 07/18/22 09/01/24 chewable tablet Previous Rx's ?Medication ?Instructions ?Recorded polymyxin B sulfate 10,000 1 drp ophthalmic-Right QID 5 days 05/14/24 unit-trimethoprim 1 mg/mL eye drops #10 mL citalopram 20 mg tablet 20 mg PO DAILY #90 tabs 09/01/24 docusate calcium 240 mg capsule 240 mg PO BEDTIME #30 caps 09/17/24 magnesium citrate 148 ml PO DAILY #296 mL 09/17/24 Allergies Allergy/AdvReac Type Severity Reaction Status Date / Time No Known Allergies Allergy Verified 09/17/24 15:53 Review of Systems Review of Systems Yes all other systems are reviewed and are negative Constitutional: Reports as per HPI PMFSH Past Medical History Medical History Neuropathy Microscopic hematuria Sinusitis Annual physical exam DJD (degenerative joint disease), lumbar Chronic constipation Anxiety Surgical History S/P right knee arthroscopy H/O colonoscopy Family History Family History Father No problems noted. Mother No problems noted. Daughter Type 1 diabetes Maternal Grandmother History of kidney cancer Social History Social History Housing: House Alcohol intake: current Alcohol intake frequency: a few times a month Patient Tobacco Use Status: Never used Tobacco e-Cigarette/Vaping Use: Never Used Second Hand Smoke Exposure: No Advance Directives: No Advance Directives Information Provided: No Do you have a plan to hurt others: No Plan service: No Current occupational status: employed Cognitive needs: No Hearing needs: No Vision needs: No Physical Exam ED Vital Signs: Vital Signs - 24 hr 09/17/24 15:50 09/17/24 18:32 09/17/24 20:06 Temperature 97.5 F 97.5 F 97.7 F Pulse Rate 68 65 61 Respiratory Rate 16 16 16 Blood Pressure 122/71 103/59 L 103/63 Pulse Oximetry 100 98 99 Oxygen Delivery Method Room Air Room Air Room Air 09/17/24 20:48 Temperature 97.7 F Pulse Rate 61 Respiratory Rate 16 Blood Pressure 103/63 Pulse Oximetry 99 Oxygen Delivery Method Room Air BMI result Body Mass Index 21.3 Const General: cooperative, comfortable and no acute distress Orientation/consciousness: patient oriented x3 Limitations: no limitations HENMT Head: Yes normal to inspection, Yes normocephalic and Yes atraumatic Ears: hearing grossly normal bilaterally General nose exam: Normal external nose present Face and sinus: Yes normal facial exam Mouth: Normal oral and palatal mucosa present, oropharynx normal and moist mucous membranes Throat: Yes posterior oropharynx normal Eyes General: appearance normal, both eyes and all related structures Eyelids: Yes eyelids normal Conjunctivae: conjunctivae normal Sclerae: sclerae normal Pupils: Equal, round and reactive pupils present EOM: EOMs intact bilaterally Neck Neck: Yes normal visual inspection, Yes full ROM and Yes no lymphadenopathy Lymphatic: no lymphadenopathy noted Chest Chest palpation & inspection: normal inspection of the chest Resp Effort & Inspection: normal respiratory effort and able to speak in complete sentences Auscultation: clear to auscultation bilaterally, no crackles, no rales, no rhonchi and no wheezes Cardio Rate: regular rate Rhythm: regular rhythm Heart sounds: S1 normal heart sound present and S2 normal heart sound present GI Other: Abdomen is soft, with tenderness palpation in the right lower and right upper quadrant. No rebound or guarding. Inspection: Yes normal to inspection Other: No CVA tenderness. Skin General skin exam: no rashes or lesions noted Trauma: no lacerations or abrasions Wounds: no wounds Neuro General: patient oriented x3 and moves all extremities Cranial nerves: Yes Equal, round and reactive pupils present Extrem General: Yes normal to inspection Right upper extremity: normal to inspection Left upper extremity: normal to inspection Right lower extremity: normal to inspection Left lower extremity: normal to inspection Course Course Course Narrative: This is a rapid medical exam performed by Viola Finney PA-C. Patient is a 49-year-old female who presents with acute onset of right upper quadrant discomfort. Pain radiating to her back, is severe at this time with the associated abdominal distention. Nausea vomiting. On exam, she is focally tender in the right upper quadrant with mild voluntary guarding. We will be screening basic labs including LFTs lipase, obtaining an ultrasound of the right upper quadrant. The patient is stable and can return to the waiting room pending her full medical assessment. Reevaluation(s) Reevaluation #1: CT scan still pending at this time however patient has large stool burden, bladder appears to be enlarged, therefore postvoid residual was ordered, 0 urine left in the bladder. Urine returns, does not appear to be infectious. We will continue to monitor. Patient remains comfortable, awaiting abdomen pelvis CT scan. Time: 17:51 Reevaluation #2: CT scan showing severe fecal retention. Discussed with patient. She remains to be painfree, no return of discomfort. Her bowel regimen is MiraLax twice a day. Given that she has severe fecal retention, she needs to be on a more aggressive bowel regimen. Will medicate with Mag citrate, as well as docusate. Repeat troponin ordered. Time: 19:03 Reevaluation #3: Sign-out was given to my colleague pending repeat troponin. Time: 19:48 Medical Decision Making Medical Decision Making [facility] Narrative: This is a 49-year-old female who presents emergency department for evaluation of abdominal pain which started after eating care solid. On arrival, vital signs within normal limits. She is speaking full sentences under no acute distress. She states that since her arrival to the emergency room her pain has resolved. She does have tenderness palpation in the right lower quadrant, overlying McBurney's point. No rebound or guarding. No CVA tenderness. Differential diagnoses include appendicitis, cholecystitis, cholangitis, pyelonephritis, obstructive uropathy, SBO. Labs were obtained prior to my evaluation, she has no leukocytosis, stable H&H, chemistry with no significant electrolyte derangement. AST ALT slightly elevated - 48/41 respectively. Ultrasound was obtained prior to my assessment to rule out gallbladder etiology. Upon my reassessment, she is not having right upper quadrant pain therefore CT abdomen and pelvis with IV contrast was ordered. I asked patient if she would like any pain medication at this time which she declines. We will continue to closely monitor. Differential Diagnosis Differential Diagnoses: The differential diagnosis associated with the presentation includes See above Lab Data [facility] Lab Attestation statement: I reviewed the patient's lab results. See [facility] 09/17/24 16:06 09/17/24 16:06 Labs: Lab Results 09/17/24 09/17/24 09/17/24 Range/Units 16:06 17:29 18:51 WBC 6.5 (4.8-10.8) X10*3/uL RBC 4.24 (4.20-5.50) X10*6/uL Hgb 13.1 (12.0-16.0) g/dl Hct 38.5 (37.0-47.0) % MCV 90.8 (80.0-98.0) fL MCH 30.9 (27.0-33.0) pg MCHC 34.0 (31.0-35.0) g/dl RDW 11.9 (11.0-16.0) % Plt Count 269 (160-400) X10*3/uL MPV 8.7 L (9.4-12.3) fL Immature Gran % (Auto) 0.3 (0.0-0.4) % Neut % (Auto) 50.4 (45-73) % Lymph % (Auto) 39.1 (20-40) % [place] % (Auto) 9.0 (2-11) % Eos % (Auto) 0.6 (0-4) % Baso % (Auto) 0.6 (0-2) % Lymph # (Auto) 2.6 (1.2-4.9) X10*3/uL [place] # (Auto) 0.6 (0.1-1.2) X10*3/uL Eos # (Auto) 0.0 (0.0-0.4) X10*3/uL Baso # (Auto) 0.0 (0.0-0.2) X10*3/uL Abs Immat Gran (auto) 0.02 (0.00-0.03) X10*3/uL Absolute Neuts (auto) 3.3 (2.0-8.3) x10*3/uL Absolute Nucleated RBC 0.000 (0.0-0.012) X10*3/uL Nucleated RBC % (auto) 0.0 (0.0-0.2) /100WBC Sodium 138 (135-145) mmol/L Potassium 3.7 (3.3-5.1) mmol/L Chloride 104 (96-108) mmol/L Carbon Dioxide 26 (22-29) mmol/L Anion Gap 12 (12-20) BUN 14 (9-16) mg/dL Creatinine 0.81 (0.5-1.4) mg/dL Estim Creat Clear Calc 82.2 Estimated GFR > 60 Random Glucose 87 (60-115) mg/dL Calcium 9.6 (8.4-10.2) mg/dL Magnesium 2.0 (1.6-2.6) mg/dL Total Bilirubin 0.3 (0.0-1.0) mg/dL AST 48 H (5-31) U/L ALT 41 H (0-31) U/L Alkaline Phosphatase 64 (39-117) U/L Troponin I High Sens < 2.7 < 2.7 (<3.5-17.0) ng/L Total Protein 7.6 (6.5-8.0) g/dL Albumin 4.5 (3.5-5.0) g/dL Lipase 25 (8-78) U/L Beta HCG, Quant 3 mIU/mL Urine Color Yellow Urine Appearance Clear Urine pH 8.0 (5.0-9.0) Ur Specific [place] 1.010 (1.005-1.025) Urine Protein Negative (Neg-Trace) mg/dL Urine Glucose (UA) Negative (Negative) mg/dL Urine Ketones Negative (Negative) mg/dL Urine Blood Negative (Negative) Urine Nitrite Negative (Negative) Ur Leukocyte Esterase Negative (Negative) Independent Interpretation I performed an independent interpretation of an: EKG Interpretation: NSR at a ventricular rate of 66bpm. No ST elevation or depression seen. Radiology Impression Discussion of test interpretation with radiology: I have reviewed the radiologist's reading. Radiologist Impression: Findings: The lung bases are clear. Unremarkable gallbladder and solid organs. No urolithiasis. No bowel obstruction, pneumoperitoneum, or pneumatosis. Moderate distention of the urinary bladder. Appendix not definitively seen. No secondary findings to suggest appendicitis. The bones are intact. IMPRESSION: Severe fecal retention within the colon. This document has been electronically signed by: Nanda Barber MD on 09/17/2024 18:09:17 Dictated By: Nanda Barber MD Signed By: <Electronically signed by Nanda Barber MD in OV> External Record Review External record reviewed: Inpatient record, Office record, Outpatient record, Prior outpatient labs, Prior outpatient radiology, Primary care record and Outside ED record Medications Administered Discontinued Medications Generic Name Dose Route Start Last Admin Trade Name Freq PRN Reason Stop Dose Admin Iohexol 100 ml 09/17/24 17:00 09/17/24 17:02 Iohexol 350 Mg/Ml 100 Ml Infus..Btl IV 09/17/24 17:01 85 ml ONCE ONE Administration Discharge Plan Discharge Clinical Impression: Constipation, Abdominal pain Patient Disposition: Home, Self-Care Instructions: Constipation (ED), High Fiber Diet (ED), Abdominal Pain (ED) Additional Instructions: You were seen in the emergency department due to abdominal pain. Your EKG was normal. Your blood work was reassuring. Do have slight elevation in your liver enzymes, this is very nonspecific. Your CT scan shows severe constipation. I am putting you on a bowel regimen. Take magnesium citrate tonight, half a bottle today, and half a bottle tomorrow. I will also having you start docusate, take this at night, this will help with stool softening mechanism. I also want you to continue taking MiraLax. It is very important that you continue eating high-fiber foods. Drink plenty of fluids get plenty of rest. Exercise can also help. If any new or worsening symptoms occur including but not limited to severe chest pain, shortness of breath, please seek emergent care. Please follow-up with the coupling machine operator, as well as following up with your primary care physician regarding this visit. Prescriptions: New docusate calcium 240 mg capsule 240 mg PO BEDTIME Qty: 30 0RF magnesium citrate Solution 148 ml PO DAILY Qty: 296 0RF Rx Instructions: 1/2 bottle today (09/17/2024), 1/2 bottle tomorrow (09/18/2024) No Action magnesium hydroxide 1,200 mg tablet,chewable See Rx Instructions PO .COMPLEX Rx Instructions: 1500 mg 3 x week orally; citalopram 20 mg tablet 20 mg PO DAILY Qty: 90 3RF polymyxin B sulf-trimethoprim 10,000 unit- 1 mg/mL drops 1 drp ophthalmic-Right QID 5 Days Qty: 10 0RF Rx Instructions: while awake Stand Alone Forms: Work/School Release Interventions: ED Discharge Assessment Last Done: 09/17/24 20:48 Discharge Date/Time: 09/17/24 20:49 Print Language: Bulgarian
--- NOTE | 2024-09-17 16:00 | ECG_ITS ---
Test Reason : EPIGASTRIC PAIN Blood Pressure : */* mmHG Vent. Rate : 66 BPM Atrial Rate : 66 BPM P-R Int : 164 ms QRS Dur : 80 ms QT Int : 408 ms P-R-T Axes : 25 77 66 degrees QTcB Int : 427 ms Normal sinus rhythm Normal ECG When compared with ECG of 23-Jun-2013 18:01, No significant change was found Referred By: Marisel Mccormick Electronically Signed By: Darron García
[2024-09-17 16:11] LABS: MANUAL DIFF FLAG NO
--- OUTSIDE RECORDS SUMMARY | 2024-09-17 16:19 | XMS_ITS | Clinical Summary ---
Author Organization [facility] Address [address] [id number] Care Team Providers Care Outdoor Studies Director Name Role Phone Marsha Bliss Primary Care Provider [phone] Allergies No known active allergies Medications celecoxib [...] complete this topic Procedures * Due to [facility] law, this organization might not be sharing negative HIV tests. Procedure Name Priority Date/Time Associated Diagnosis Comments HEPATITIS PANEL, ACUTE Routine 11/23/2021 10:53 AM EDT Neuropathy from Last 3 Months or Most Recently Relevant to Health Maintenance Results * Due to [facility] law, this organization might not be sharing negative HIV tests. * Hepatitis Panel, Acute (11/23/2021 10:53 AM EDT) Hepatitis A IgM NON-REACT THUY NON-REACT THUY 11/24/2021 5:03 PM EDT [facility] Hepatitis B Surface Antigen NON-REACT THUY NON-REACT THUY 11/24/2021 5:03 PM EDT [facility] Hepatitis B Core Antibody NON-REACT THUY NON-REACT THUY 11/24/2021 5:03 PM EDT [facility] Hepatitis C Antibody NON-REACT THUY NON-REACT THUY 11/24/2021 5:03 PM EDT [facility] Signal To Cut-Off 0.01 <1.00 11/24/2021 5:03 PM EDT [facility] Comment: HCV antibody was non-reactive. There is no laboratory evidence of HCV infection. In most cases, no further action is required. However, if recent HCV exposure is suspected, a test for HCV RNA (test code 95223) is suggested. For additional information please refer to http://GlycoPure.Element Robot/faq/EVT26e8 (This link is being provided for informational/ educational purposes only.) For additional information, please refer to http://GlycoPure.Element Robot/faq/XAG885 (This link is being provided for informational/ educational purposes only.) Blood Structure of peripheral vein / Unknown Venipuncture / Unknown 11/23/2021 10:53 AM EDT 11/23/2021 11:09 AM EDT Narrative [facility] - 11/24/2021 5:03 PM EDT [facility] Received Date: us Rosa Elena Mauricio MD LAB BLOOD ORDERABLES Final Re sult [facility] [address], [place] [address], [facility] [address], [place] [address], from Last 3 Months or Most Recently Relevant to Health Maintenance Insurance [facility] HMO/POS Care Teams Outdoor Studies Director Relationship Specialty Start Date End Date Marsha Bliss [address] [place] [address] PCP - General 11/22/21
--- OUTSIDE RECORDS SUMMARY | 2024-09-17 16:19 | XMS_ITS | Continuity of Care Document ---
Author Organization [facility] Address [address] [place] [address] Phone Care Team Providers Care Youth Care Specialist Name Role Phone Andres Ocasio MD Unavailable [...] Copied on Encounter [facility], [address] [place] [address] [address], [place], [place], [id number], tel:[phone] [facility] - [facility] No Information 1 Amarjit Campos. [address], [address], [place], [place], [id number] . tel:[phone] Referring Provider: Marsha Bliss MD S, [address] [facility], [place], [address]. tel:[phone] Offic Cons New/estab Mod-hi 60 [facility], [address] [place] [address], [place], [place], [id number], tel:[phone] VR - [place] - [facility] Body mass index (BMI) 20.0-20.9, adultVenous insufficiency (chronic) (peripheral) 1 Johnny Brock. [address], [address], [facility] [place], [address], [place]. tel:[phone] Referring Provider: Marsha Bliss MD S, [address] [place] [address], [place], [address]. tel:[phone] [facility], [address] [place] [address], [id number], tel:[phone] - [facility] Varicose veins of bilateral lower extremities with pain 1 Johnny Brock. [address], [address], [facility] [place], [address], [place]. tel:[phone] Referring Provider: Marsha Bliss MD S, [address] [place] [address], [place], [address]. tel:[phone] Family History Family Member Type Diagnosis Age At Onset Mother Problem (finding) Varicose Veins Mother Problem (finding) Edema Sister Problem (finding) Diabetes mellitus Payers Payer name Insurance type Covered green party ID Divina [place](s) [place] [id number] Social History Type Description Quantity Date Captured [...]
--- OUTSIDE RECORDS SUMMARY | 2024-09-17 16:19 | XMS_ITS | Referral Summary ---
Author Organization [facility] Address [address] [place] [address] Care Team Providers Care Featheredge Machine Operator Name Role Phone Marsha Bliss Primary Care Provider [phone] Allergies No known active allergies Medications celecoxib [...] Not on file Procedures * Due to [facility] law, this organization might not be sharing negative HIV tests. Procedure Name Priority Date/Time Associated Diagnosis Comments HEPATITIS PANEL, ACUTE Routine 11/23/2021 10:53 AM EDT Neuropathy from Last 3 Months or Most Recently Relevant to Health Maintenance Results * Due to [facility] law, this organization might not be sharing negative HIV tests. * Hepatitis Panel, Acute (11/23/2021 10:53 AM EDT) Hepatitis A IgM NON-REACT THUY NON-REACT THUY 11/24/2021 5:03 PM EDT [facility] Hepatitis B Surface Antigen NON-REACT THUY NON-REACT THUY 11/24/2021 5:03 PM EDT [facility] Hepatitis B Core Antibody NON-REACT THUY NON-REACT THUY 11/24/2021 5:03 PM EDT [facility] Hepatitis C Antibody NON-REACT THUY NON-REACT THUY 11/24/2021 5:03 PM EDT [facility] Signal To Cut-Off 0.01 <1.00 11/24/2021 5:03 PM EDT [facility] Comment: HCV antibody was non-reactive. There is no laboratory evidence of HCV infection. In most cases, no further action is required. However, if recent HCV exposure is suspected, a test for HCV RNA (test code 60732) is suggested. For additional information please refer to http://Elevate.Basketball [place]/faq/UDP35h1 (This link is being provided for informational/ educational purposes only.) For additional information, please refer to http://Elevate.Voltea.2AdPro Media Solutions/faq/TQM279 (This link is being provided for informational/ educational purposes only.) Blood Structure of peripheral vein / Unknown Venipuncture / Unknown 11/23/2021 10:53 AM EDT 11/23/2021 11:09 AM EDT Narrative [facility] [place] - 11/24/2021 5:03 PM EDT [facility] Received Date: us Rosa Elena Mauricio MD LAB BLOOD ORDERABLES Final Re sult [facility] [address], [place] [address], [place] [phone] [facility] [address], [address] [place] [address], [place] [phone] from Last 3 Months or Most Recently Relevant to Health Maintenance Insurance [facility] HMO/POS Care Teams Featheredge Machine Operator Relationship Specialty Start Date End Date Marsha Bliss [address] [place] [address] PCP - General 11/22/21
--- OUTSIDE RECORDS SUMMARY | 2024-09-17 16:19 | XMS_ITS | Data Portability ---
Author Organization [facility] [address] Address [address] [place] [address] Assessment Encounter Date Assessment Date Assessment LastModified [...] rapid strep group A, throat 023 09/05/19 jclaybour ne1 [facility], [address] [place] [address], [place], [address], 08:30:56 Referral None recorded . Procedures None recorded . Surgeries None recorded . Imaging None recorded . Medication Orders None recorded . Patient TargetsNo targets recorded. Patient Instructions Encounter Date Encounter Id Patient Instructions Last Modified By Organization Details Last Modified Time 09/05/2022 [id number] sore throat: car e instructions Not available [...] Analyte Normal = Negati ve Not Available _nancy [address], [address], 09/05/2022 08:11:02 09/05/19 23 09/05/2022 rapid strep group A, throa t Unknown Analyte negati ve Not Available [address], [address], 09/05/2022 08:11:02 Result Notes None recorded. Problems Name Problem SNOMED Code Status Onset Date Resolution Date Notes Provider Name and Address Organization Details Recorded Time Anxiety 76797459 Active 023 JER[facility]INE hughes, [facility] - [facility] t Available Vitals Date Recorded Body height Body mass index (BMI) Body weight Pain severity - 0-10 verbal numeric rating [Score] - Reported Oxygen saturation Oxygen saturation in Arterial blood by Pulse oximetry Heart rate Respiratory rate Body temperature Systolic blood pressure Diastolic blood pressure Provider Name and Address Organization Details Last Updated DateTime 3 172.72 cm 20.5 kg/m2 11468.9 7 g 9 99 % 99 % 78 /min 16 /min 98.6 [degF] 110 mm[Hg] 75 mm[Hg] JERMAINE CORTÉS PA - [facility] 08:13:50 Social History Question Answer Notes LastModified by Organizat ion Details LastModified Time Tobacco Smoking Status Former Smoker JERMAINE CORTÉS ellen PA - [facility] 09/05/2022 08:12:15 What Is Your Level Of Alcohol Consumption? Occasional [email or web address] Information not available 09/05/2022 When Did You Quit Smoking? 16+yearssincel [email or web address] Information not available 09/05/2022 Do You Use Any Illicit Or Recreational Drugs? No [email or web address] Information not available 09/05/2022 Have You Recently Traveled Abroad? No [email or web address] Information not available 09/05/2022 Do You Or Have You Ever Used Any Other Forms Of Tobacco Or Nicotine? No [email or web address] Information not available 09/05/2022 Sex: Unknown Functional Status None recorded. Mental Status None recorded. Family History Relationship Description Onset Age of this Age Resolved Age Notes LastModified by Organization Details LastModified Time Father No current problems or disability [email or web address] Not available 09/05 08:11:53 Mother No current problems or disability [email or web address] Not available 09/05 08:11:53 Medical History No medical history recorded. Gynecological HistoryNo gynecological history recorded. Obstetrics History GPAL:G 0 P 0 0 0 0 Past Encounters Encounter ID Performer Location Encounter Start Date Encounter Closed Date Diagnosis/Indication Diagnosis SNOMED-CT Code Diagnosis ICD10 Code Diagnosis Note [id number] [address] [place] [address] 04/05/2018 09:17:35 04/05/2018 09:48:17 [id number] [address] [place] [address] 09/06/2017 12:32:12 09/06/2017 13:09:59 [id number] [address] [place] [address] 12/15/2019 11:58:48 12/15/2019 12:40:37 [id number] Jennifer Pierre DO [address] [place] [address] 09/05/2022 08:02:45 09/05/2022 08:33:31 Acute pharyngitis 525317449 J02.9 Acute uppe r respiratory infection 45641087 J06.9 Health Concerns Section Related Observation LastModified by Organization Detai ls LastModified Time None Recorded Concern Status LastModified by Organization Details LastModified Time None Recorded Advance Directives Directive None Recorded Payers Encounter Date Sequence Insurance Name Policy Number Policy Spencer Covered Member ID Spencer Member ID Guarantor Name 12/15/2019 1 [facility]: [facility] [id number] Hunter Cantu Tyree [id number] Tyree 09/05/2022 1 [facility]: [facility] [id number] Hunter Alondra Tyree [id number] [place] Notes Date Note Type Note Provider Name [...] rapid Covid test at home yesterday. Jennifer Pierre DO [address] [place], [address], [place] - [facility] 09/05/2022 08:35:11 OBGyn Episode No OBEpisode recorded.
[2024-09-17 16:21] LABS: Basophils Percent Auto 0.6 % (0-2); Eosinophils Percent Auto 0.6 % (0-4); Hematocrit 38.5 % (37.0-47.0); Hemoglobin 13.1 g/dl (12.0-16.0); Imm Gran Abs Auto 0.02 X10*3/uL (0.00-0.03); Imm Gran Pct Auto 0.3 % (0.0-0.4); Lymphocytes Absolute Auto 2.6 X10*3/uL (1.2-4.9); Lymphocytes Percent Auto 39.1 % (20-40); Mean Corpuscular Hemoglobin 30.9 pg (27.0-33.0); Mean Corpuscular Volume 90.8 fL (80.0-98.0); Mean Platelet Volume 8.7 fL (9.4-12.3); Monocytes Absolute Auto 0.6 X10*3/uL (0.1-1.2); Neutrophils Absolute Auto 3.3 x10*3/uL (2.0-8.3); Neutrophils Percent Auto 50.4 % (45-73); Platelet Count 269 X10*3/uL (160-400); Red Blood Count 4.24 X10*6/uL (4.20-5.50); Red Cell Distribution Width 11.9 % (11.0-16.0); White Blood Count 6.5 X10*3/uL (4.8-10.8)
[2024-09-17 16:26] LABS: Alanine Aminotransferase 41 U/L (0-31); Albumin Level 4.5 g/dL (3.5-5.0); Alkaline Phosphatase 64 U/L (39-117); Anion Gap 12 (12-20); Aspartate Amino Transferase 48 U/L (5-31); Bilirubin Total 0.3 mg/dL (0.0-1.0); Blood Urea Nitrogen 14 mg/dL (9-16); Calcium 9.6 mg/dL (8.4-10.2); Carbon Dioxide 26 mmol/L (22-29); Chloride 104 mmol/L (96-108); Creatinine Clr Calc Pharmacy 82.2; Estimated Glomerular Filt Rate > 60; Glucose Random 87 mg/dL (60-115); Lipase 25 U/L (8-78); Potassium 3.7 mmol/L (3.3-5.1); Sodium 138 mmol/L (135-145); Total Protein 7.6 g/dL (6.5-8.0)
[2024-09-17 16:33] LABS: HCG Quantitative 3 mIU/mL
[2024-09-17 16:35] LABS: Troponin-I High Sensitivity < 2.7 ng/L (<3.5-17.0)
[2024-09-17] MEDS: iohexoL 350 MG/ML 100 ML INFUS..BTL IV (17:02)
[2024-09-17 17:42] LABS: Appearance Urine Clear; Color Urine Yellow; Glucose Urine UA Negative (Negative); Leukocyte Esterase Urine Negative (Negative); Nitrite Urine Negative (Negative); Urine Blood Negative (Negative); Urine Ketones Negative (Negative); Urine Protein Negative (Neg-Trace)
[2024-09-17 18:32] VITALS: BP 103/59; PULSE 65; RESP 16; TEMP 36.4; O2SAT 98
[2024-09-17 20:06] VITALS: BP 103/63; PULSE 61; RESP 16; TEMP 36.5; O2SAT 99
[2024-09-17 20:48] VITALS: BP 103/63; PULSE 61; RESP 16; TEMP 36.5; O2SAT 99
[2024-09-17 21:11] LABS: Troponin-I High Sensitivity < 2.7 ng/L (<3.5-17.0)
== END 2024-09-17 20:49 | disposition home or self-care (01) ==
PROVIDERS: Physician Assistant Medical; Emergency Provider Emergency Medicine; PCP Internal Medicine
DX: K59.00 Constipation, unspecified (principal); R10.13 Epigastric pain; R10.2 Pelvic and perineal pain; R11.0 Nausea; R06.02 Shortness of breath; R10.11 Right upper quadrant pain; Z79.899 Other long term (current) drug therapy
CPT/HCPCS: 36415; 51798; 74177; 76705; 80053; 81003; 83690; 83735; 84484; 84702; 85025; 93005; 99284; Q9967

== ENCOUNTER → 2024-09-17 15:52 | Outpatient (BNV) | payer BC, SELFPAY | PROVIDERS: Emergency Provider Emergency Medicine; PCP Internal Medicine; Visit Provider Radiology Diagnostic Radiology | DX: K56.41 Fecal impaction (principal) | CPT/HCPCS: 74177 ==

== ENCOUNTER → 2024-09-17 16:00 | Outpatient (BNV) | payer BC, SELFPAY | PROVIDERS: Emergency Provider Emergency Medicine; PCP Internal Medicine; Visit Provider Internal Medicine Cardiovascular Disease | DX: R10.13 Epigastric pain (principal) | CPT/HCPCS: 93010 ==

== ENCOUNTER 2024-11-09 06:42 | Outpatient (REF) | payer BC, SELFPAY ==
[2024-11-09 10:00] LABS: MANUAL DIFF FLAG NO
[2024-11-09 10:16] LABS: Basophils Percent Auto 0.8 % (0-2); Eosinophils Absolute Auto 0.1 X10*3/uL (0.0-0.4); Eosinophils Percent Auto 2.3 % (0-4); Hematocrit 39.2 % (37.0-47.0); Hemoglobin 13.1 g/dl (12.0-16.0); Imm Gran Abs Auto 0.01 X10*3/uL (0.00-0.03); Imm Gran Pct Auto 0.2 % (0.0-0.4); Lymphocytes Absolute Auto 2.2 X10*3/uL (1.2-4.9); Lymphocytes Percent Auto 45.3 % (20-40); Mean Corpuscular HGB Conc 33.4 g/dl (31.0-35.0); Mean Corpuscular Hemoglobin 31.2 pg (27.0-33.0); Mean Corpuscular Volume 93.3 fL (80.0-98.0); Mean Platelet Volume 9.2 fL (9.4-12.3); Monocytes Absolute Auto 0.5 X10*3/uL (0.1-1.2); Monocytes Percent Auto 9.8 % (2-11); Neutrophils Percent Auto 41.6 % (45-73); Platelet Count 283 X10*3/uL (160-400); Red Cell Distribution Width 12.3 % (11.0-16.0); White Blood Count 4.8 X10*3/uL (4.8-10.8)
[2024-11-09 10:55] LABS: Alanine Aminotransferase 23 U/L (0-31); Albumin Level 4.2 g/dL (3.5-5.0); Alkaline Phosphatase 57 U/L (39-117); Anion Gap 12 (12-20); Aspartate Amino Transferase 27 U/L (5-31); Bilirubin Total 0.5 mg/dL (0.0-1.0); Blood Urea Nitrogen 12 mg/dL (9-16); Calcium 9.1 mg/dL (8.4-10.2); Carbon Dioxide 29 mmol/L (22-29); Chloride 105 mmol/L (96-108); Cholesterol 199 mg/dL (<200); Estimated Glomerular Filt Rate > 60; Glucose Fasting 86 mg/dL (60-99); HDL Cholesterol 63 mg/dL (>40); LDL Cholesterol Calculated 125 mg/dL (<100); Potassium 3.8 mmol/L (3.3-5.1); Sodium 142 mmol/L (135-145); TSH reflex Free T4 1.67 uIU/mL (0.32-4.0); Total Protein 6.8 g/dL (6.5-8.0); Triglycerides 59 mg/dL (<150); Vitamin D 25-OH Total 61.6 ng/mL (>30)
== END 2024-11-09 06:43 | disposition home or self-care (01) ==
LOC: HO.HMGCLDS 06:42
PROVIDERS: PCP Internal Medicine; Visit Provider Internal Medicine
DX: Z00.00 Encounter for general adult medical examination without abnormal findings (principal); F41.9 Anxiety disorder, unspecified
CPT/HCPCS: 36415; 80053; 80061; 82306; 84443; 85025

== ENCOUNTER 2025-04-07 07:58 | Outpatient (REF) | payer BC, SELFPAY ==
--- OUTSIDE RECORDS SUMMARY | 2020-12-29 05:11 | XMS_ITS | Continuity of Care Document ---
Author Organization [facility] Address [address] [place] [address] Phone Care Team Providers Care Motivational Speaker Name Role Phone Andres Ocasio MD Unavailable Unavailable Allergies, Adverse Reactions, Alerts Substance Reaction Status Criticality No Known Allergies Active No Inform ation Medications Medication Instructions Dosage Effective Dates (start - stop) Status Comments CELEXA (unknown strength) Not Available - Active IBUPROFEN (unknown strength) Not Available - Active Procedures Procedure Date Offic Cons New/estab Mod-hi 60 Duplex Scan-extrem Veins; Comp Advance Directives Directive Yes / No Effective Date File Name No Information Encounters Encounter Description Practice Location Reason(s) For Visit Diagnoses Date Provider Providers Copied on Encounter [facility], [address] [place] [address], [place], [place], [id number], tel:[phone] [facility] - [facility] No Information 1 Amarjit Campos. [address], [address], [place], [place], [id number] . tel:[phone] Referring Provider: Marsha Bliss MD S, [address] [facility], [place], [address]. tel:[phone] Offic Cons New/estab Mod-hi 60 [facility], [address] [place] [address], [place], [place], [id number], tel:[phone] [place] - [place] Body mass index (BMI) 20.0-20.9, adultVenous insufficiency (chronic) (peripheral) 1 Johnny Brock. [address], [address], [place], [address], [place]. tel:[phone] Referring Provider: Marsha Bliss MD S, [address] [place] [address], [place], [address]. tel:[phone] [facility], [address] [place] [address], [id number], tel:[phone] [facility] - [facility] Varicose veins of bilateral lower extremities with pain 1 Johnny Brock. [address], [address], [place], [address], [place]. tel:[phone] Referring Provider: Marsha Bliss MD S, [address] [place] [address], [place], [address]. tel:[phone] Family History Family Member Type Diagnosis Age At Onset Mother Problem (finding) Varicose Veins Mother Problem (finding) Edema Sister Problem (finding) Diabetes mellitus Payers Payer name Insurance type Covered green party ID Authoranna villeladominik(s) [place] [id number] Social History Type Description Quantity Date Captured Comments Sex Female Smoking Status No Information Chief Complaint And Reason For Visit No Information Reason For Referral Reason For Referral No Information Plan Of Treatment Date Type Action Status Goal Diet education completed Referral Ordered: Duplex Scan-extrem Veins; Comp Bilateral leg ordered History Of Present Illness Encounter Date Complaint History Of Prese nt Illness Pain Swelling Functional Status Date Functional Assessmen t No Information Instructions Date Instruction Additional Infor mation Patient education booklet given Related to Venous Insufficiency (Chronic / Peripheral) Pre and post instruc tions reviewed and provided Related to Venous Insufficiency (Chronic / Peripheral) Giving Encouragement to Exercise Related to Body mass index [BMI] 20.0-20.9, adult Diet education Related to Body mass index [BMI] 20.0-20.9, adult Assessments Type Assessment Date No Information Patient Care Teams Name Effective Dates (start - stop) Status Members No Information
--- OUTSIDE RECORDS SUMMARY | 2025-04-07 08:02 | XMS_ITS | Clinical Summary ---
Author Organization [facility] Address [address] [id number] Care Team Providers Care Authorizer Name Role Phone Marsha Bliss Primary Care Provider [phone] Allergies No known active allergies Medications celecoxib (CeleBREX) 200 mg capsule Take 200 mg by mouth once a day. 08/12/2021 Active citalopram (CeleXA) 20 mg tablet Take 20 mg by mouth once a day. 05/25/2021 Active ibuprofen 200 mg capsule Take 600 mg by mouth as needed. Active lubiprostone (AMITIZA) capsule 8 mcg SMARTSI Capsule(s) By Mouth Twice Daily 09/25/2024 Active polyethylene glycol 3350 (MIRALAX) 17 gram packet Take 17 g by mouth daily as needed for constipatio n. Mix powder in 4 to 8 oz of water, juice, coffee, or tea prior to administrat ion. Active radiopaque pvc markers-barium (Sitzmarks) 24 Markers capsule Take 1 1 SS tablet by mouth once a day. 1 each 10/08/2024 Active Active Problems No known active problems Family History Relation Name Status Comments Father Alive Mother Alive Social History Tobacco Use Types Packs/Day Years Used Date Smoking Tobacco: Former Cigarettes Q uit: 11/24/1991 Smokeless Tobacco: Never Tobacco Cessation:Counseling Given: Not Answered Alcohol Use Standard Drinks/Week Comments Yes 0 (1 standard drink = 0.6 oz pur e alcohol) social Comments No Sex and Gender Information Value Date Recorded Sex Assigned at Female 10/01/2024 6:59 PM EST Legal Sex Female 12:03 AM EDT Gender Identity Female 10/01/2024 6:59 PM EST Sexual Orientation Straight 10/01/2024 6: 59 PM EST Last Filed Vital Signs Vital Sign Reading Time Taken Comments Blood Pressure 116/76 10/08/2024 3:12 PM EST Pulse 61 10/08/2024 3:12 PM EST Temperature 36.6 C (97.9 F) 10/08/2024 3:12 PM EST Respiratory Rate 16 11/23/2021 9:47 AM EDT Oxygen Saturation 100% 10/08/2024 3:12 PM EST Inhaled Oxygen Concentration - - Weight 63 kg (138 lb 12.8 oz) 10/08/2024 3:12 PM EST Height 171.5 cm (5' 7.5 ) 11/23/2021 9:47 AM EDT Body Mass Index 21.42 11/23/2021 9:47 AM EDT Plan of Treatment [...] Vaccines (1 - Tdap) 1995 Mammogram 2013 Pneumococcal Vaccine: 50+ Ye ars (1 of 1 - PCV) 2023 Zoster Vaccines (1 of 2) 2023 COVID-19 Vaccine ( season) 2024 05/29/2021, 09/11/2020, 08/21/2020 Alcohol/Substance Use Screening 08/12/2024 Depression Screening and Follow-Up 08/12/2024 Social Drivers of Health Dee Dee ual Screening 08/12/2024 Influenza Vaccine (#1) 2025 , 05/29/2023, 06/04/2022 RSV Vaccine (60+ years old a nd patients) (1 - 1-dose 75+ series) 2048 Hepatitis C Screening Completed 11/23/2021 Procedures * Due to [place] state law, this organization might not be sharing negative HIV tests. Procedure Name Priority Date/Time Associated Diagnosis Comments HEPATITIS PANEL, ACUTE Routine 11/23/2021 10:53 AM EDT Neuropathy from Last 3 Months or Most Recently Relevant to Health Maintenance Results * Due to [place] state law, this organization might not be sharing negative HIV tests. * Hepatitis Panel, Acute (11/23/2021 10:53 AM EDT) Hepatitis A IgM NON-REACT THUY NON-REACT THUY 11/24/2021 5:03 PM EDT [facility] Hepatitis B Surface Antigen NON-REACT THUY NON-REACT THUY 11/24/2021 5:03 PM EDT [facility] Hepatitis B Core Antibody NON-REACT THUY NON-REACT THUY 11/24/2021 5:03 PM EDT [facility] Hepatitis C Antibody NON-REACT THUY NON-REACT THUY 11/24/2021 5:03 PM EDT [facility] Signal To Cut-Off 0.01 <1.00 11/24/2021 5:03 PM EDT [facility] Comment: HCV antibody was non-reactive. There is no laboratory evidence of HCV infection. In most cases, no further action is required. However, if recent HCV exposure is suspected, a test for HCV RNA (test code 04872) is suggested. For additional information please refer to http://[employer]iny/faq/LVD47c9 (This link is being provided for informational/ educational purposes only.) For additional information, please refer to http://[employer]/faq/LLD514 (This link is being provided for informational/ educational purposes only.) Blood Structure of peripheral vein / Unknown Venipuncture / Unknown 11/23/2021 10:53 AM EDT 11/23/2021 11:09 AM EDT [facility]ative [facility] - 11/24/2021 5:03 PM EDT [facility] Received Date:[id number] us Rosa Elena Mauricio MD LAB BLOOD ORDERABLES Final Re sult [facility] [address] [facility] [address], [place] [address], [place] [phone] [facility] [address], [address] [facility] [place] [address], [place] [phone] from Last 3 Months or Most Recently Relevant to Health Maintenance Insurance [facility] HMO/POS Care Teams Authorizer Relationship Specialty Start Date End Date Marsha Bliss [address] [place] [address] PCP - General 11/22/21
[2025-04-07 10:41] LABS: Iron 67 mcg/dL (30-160); Percent Iron Saturation 25 % (15-50); Total Iron Binding Capacity 272 mcg/dL (228-428); Unsaturated Iron Binding 205 ug/dL
[2025-04-07 10:42] LABS: Ferritin 60 ng/mL (10-250)
[2025-04-09 22:28] LABS: TS Negative Control Passed; TS Panel A 5; TS Panel B 7; TS Positive Control Passed; TSpotTB Borderline (Negative)
== END 2025-04-07 07:59 | disposition home or self-care (01) ==
LOC: HO.HMGCLDS 07:58
PROVIDERS: PCP Internal Medicine; Visit Provider Internal Medicine
DX: Z11.1 Encounter for screening for respiratory tuberculosis (principal); L65.9 Nonscarring hair loss, unspecified
CPT/HCPCS: 36415; 82728; 83540; 86481